=== PATIENT | male | born 1985 | race Caucasian/White ===

== ENCOUNTER 2020-06-19 12:08 | Emergency (ER) | payer SELFPAY ==
[2020-06-19] MEDS ORDERED: Bupivacaine 0.5% 10 ML SDV INJECT ONE (12:50)
--- NOTE | 2020-06-19 12:55 | EDM.PDOC ---
ED HPI GENERAL MEDICAL PROBLEM - General Chief Complaint: ENT Problem Stated Complaint: TOOTH PAIN Time Seen by Provider: 06/19/20 12:13 Source of Information: Reports: Patient History Limitations: Reports: No Limitations - History of Present Illness INITIAL COMMENTS - FREE TEXT/NARRATIVE: 34-year-old male with no past medical history presenting with dental pain. Reports a 2-week history of pain to tooth isolated to left upper area of the mouth and the left lower rear most molar. Complains of worsening pain over the past few days. Has not been able to see a dentist and has not seen a dentist for several years. No history of diabetes or immunosuppression. No fever, facial swelling, difficulty breathing or swallowing, or limitation of neck movement. No voice changes. No other complaints. Past medical history: Reviewed, no additional pertinent history. Surgical history: Reviewed in system, no additional pertinent history. Social history: Reviewed in system, no additional pertinent history. Family history: Reviewed in system, no additional pertinent history. PHYSICAL EXAM Vital signs reviewed. Nursing notes reviewed. Constitutional: Awake, alert, non-distressed. Head: Normocephalic, atraumatic. Eyes: EOMI, conjunctiva normal, no discharge, no scleral icterus. Ears, Nose, Throat: External ears and nose normal, moist oral mucosa. No pain with tracheal tug. Overall very poor dentition. One of the left upper molars is very carious appearing and severely decayed. No evidence of a surrounding periapical abscess. The gingiva are very inflamed and overgrown. The left rear most molar also appears carious. No evidence of any periapical abscess. Uvula is midline. Voice is normal. Handling secretions without difficulty. Cardiovascular: 2+ radial pulse, capillary refill less than 2 seconds. Pulmonary: normal work of breathing, no accessory muscle use. Abdomen/GI: Soft, nontender, nondistended, no guarding or rigidity, no masses. Musculoskeletal: No deformities. Integumentary: Appropriate color for ethnicity, warm, dry, no pallor or jaundice, no rash. Neurologic: Alert, answering questions appropriately, normal speech, no facial droop, moving all extremities well. Psychiatric: Appropriate mood and affect, normal thought process. This patient was seen and evaluated during the 2019 SARS-CoV-2 novel coronavirus pandemic period. Community viral transmission is ongoing at time of this encounter and the emergency department is operating under pandemic response procedures. left tooth pain Pain Score (Numeric/FACES): 7 - Related Data Allergies Allergy/AdvReac Type Severity Reaction Status Date / Time No Known Allergies Allergy Verified 06/19/20 12:40 Home Meds: Home Meds Acetaminophen [Acetaminophen Extra Strength] 500 - 1,000 mg PO Q6H PRN #30 t ablet 06/19/20 [Rx] Amoxicillin/Potassium Clav [Augmentin 875-125 Tablet] 1 each PO BID 10 Days #20 tablet 06/19/20 [Rx] Ibuprofen 400 mg PO Q6H PRN #30 tablet 06/19/20 [Rx] Past Medical History - Past Health History Medical/Surgical History: Denies Medical/Surgical History Social & Family History - Tobacco Use Tobacco Use Status *Q: Current Every Day Tobacco User Years of Tobacco use: 20 Packs/Tins Daily: 1 - Recreational Drug Use Recreational Drug Use: Yes Recreational Drug Type: Reports: Marijuana/Hashish ED ROS ENT - Review of Systems Review Of Systems: See Below ED EXAM, ENT - Physical Exam Exam: See Below ED ENT PROCEDURES - Additional/Other Procedure(s) Other (Free Text) Procedure(s): Procedure: Dental Block #1 Consent for operation or procedure: Risks and benefits discussed with patient and consent obtained Anesthesia: 2 ml of Bupivicaine The distribution of the left inferior alveolar nerve was identified. Bupivacaine was injected into that region. A short time later adequate analgesia was obtained. Estimated Blood Loss: minimal Complications: The patient tolerated the procedure well without complications. Procedure: Dental Block #2 Consent for operation or procedure: Risks and benefits discussed with patient and consent obtained Anesthesia: 2 ml of Bupivicaine Bupivacaine was injected into the subperiosteal region of the left upper premolar. A short time later adequate analgesia was obtained. Estimated Blood Loss: minimal Complications: The patient tolerated the procedure well without complications Course - Vital Signs Text/Narrative:: Patient hemodynamically stable, afebrile, well-appearing, looks nontoxic. Differential diagnosis includes but is not limited to: Critical abscess, gingivitis, Roland's angina, caries, deep space neck infection, pulpitis, periodontal disease, etc. No evidence of a drainable abscess. No evidence of facial swelling or drainable abscess inside the oral cavity. Afebrile, nontoxic-appearing. No evidence of airway compromise. Performed dental blocks as detailed in the procedure note. Stable discharge home with prescriptions for Augmentin, Tylenol, Motrin, and outpatient dental clinic follow-up in the next few days. Plan: Patient is stable to discharge home with outpatient primary care clinic follow-up. Strict emergency department return precautions were provided, patient indicated understanding. All questions were answered prior to departure. Discharged in good condition. Last Recorded V/S: Last Vital Signs Temp 37.1 C 06/19/20 12:37 Pulse 102 H 06/19/20 12:37 Resp 18 06/19/20 12:37 BP 130/81 06/19/20 12:37 Pulse Ox 97 06/19/20 12:37 - Orders/Labs/Meds Meds: Medications Discontinued Medications Generic Name Dose Route Start Last Admin Trade Name Freq PRN Reason Stop Dose Admin Bupivacaine HCl 10 ml 06/19/20 12:50 06/19/20 12:55 Sensorcaine-Mpf 0.5% INJECT 06/19/20 12:51 10 ml ONETIME ONE Administration Departure - Departure Time of Disposition: 12:53 Disposition: Home, Self-Care 01 Condition: Good Clinical Impression: Pain, dental, Caries - Discharge Information *PRESCRIPTION DRUG MONITORING PROGRAM REVIEWED*: Not Applicable *COPY OF PRESCRIPTION DRUG MONITORING REPORT IN PATIENT WILL: Not Applicable Prescriptions: Acetaminophen [Acetaminophen Extra Strength] 500 - 1,000 mg PO Q6H PRN #30 tablet PRN Reason: Pain (Mild 1-3) Amoxicillin/Potassium Clav [Augmentin 875-125 Tablet] 1 each PO BID 10 Days #20 tablet Ibuprofen 400 mg PO Q6H PRN #30 tablet PRN Reason: Pain (Mild 1-3) Referrals: PCP,None [Primary Care Provider] - Forms: ED Department Discharge Additional Instructions: You were seen in the emergency department for dental pain. You have cavities of some of your teeth and the teeth involved may need to be removed by a dentist in the clinic. We are not at dentistry clinic and cannot perform this procedure. We are going to prescribe some antibiotic medications along with ibuprofen and acetaminophen. Please follow-up with a dentist in the next few days for further dental evaluation and treatment. Warning signs to come back to the ER include: Worsening pain, fever, facial swelling or swelling inside the mouth, difficulty swallowing or breathing, or any other new or concerning symptoms. Please return the emergency department immediately if your symptoms worsen or if you feel worse. Thank you for choosing the [facility] emergency department in [place] for your medical needs today. It was a pleasure caring for you. The following information is given to patients seen in the emergency department who are being discharged. This information is to outline your options for follow-up care. We provide all patients seen in our emergency department with a follow-up referral. The need for follow-up, as well as the timing and circumstances, are variable depending upon the specifics of your emergency department visit. If you don't have a primary care physician on staff, we will provide you with a referral. We always advise you to contact your personal physician following an emergency department visit to inform them of the circumstance of the visit and for follow-up with them and/or the need for any referrals to a consulting spec ialist. The emergency department will also refer you to a specialist when appropriate. This referral assures that you have the opportunity for follow-up care with a specialist. All of these measure are taken in an effort to provide you with optimal care, which includes your follow-up. Under all circumstances we always encourage you to contact your private physician who remains a resource for coordinating your care. When calling for follow-up care, please make the office aware that this follow-up is from your recent emergency room visit. If for any reason you are refused follow-up, please contact the [facility] Emergency Department at and asked to speak to the emergency department charge nurse. If you do not have a primary care physician that is caring for you, you can contact these clinics below to set up an appointment to establish care: [facility] - Primary Care [address] [place] [id number] [facility] [address] [place] [id number] Sepsis Event Note (ED) - Evaluation Sepsis Screening Result: No Definite Risk - Focused Exam Vital Signs: Vital Signs Temp Pulse Resp BP Pulse Ox 06/19/20 12:37 37.1 C 102 H 18 130/81 97
== END 2020-06-19 13:15 | disposition home or self-care (01) ==
LOC: MW.ED 12:08
DX: K02.9 Dental caries, unspecified (principal); F17.210 Nicotine dependence, cigarettes, uncomplicated
CPT/HCPCS: 64400; 99282; J3490